=== PATIENT | male | born 1990 | race Two or more races ===

== ENCOUNTER 2020-12-12 09:06 | Emergency (ER) | payer OTHER ==
--- NOTE | 2020-12-12 09:34 | EDM.PDOC ---
ED HPI GENERAL MEDICAL PROBLEM - General Chief Complaint: Laceration Stated Complaint: FELL CUT OPEN HEAD Time Seen by Provider: 12/12/20 09:25 Source of Information: Reports: Patient, RN, RN Notes Reviewed History Limitations: Reports: No Limitations - History of Present Illness INITIAL COMMENTS - FREE TEXT/NARRATIVE: Patient presents to the ED via personal vehicle with complaints of a head laceration. The patient reports he struck his head off of his bathroom counter while getting ready about one hour prior to presenting to this facility. He denies positive LOC during the event. He denies changes in sensorium, nausea, vomiting, or changes in vision. He has attempted to apply pressure to the area to stop the bleeding, but notes it will not stop oozing. He has not taken any medication for this problem. - Related Data Allergies Allergy/AdvReac Type Severity Reaction Status Date / Time No Known Allergies Allergy Verified 12/12/20 09:17 Home Meds: Home Meds . [No Known Home Meds] 12/12/20 [History] Past Medical History - Past Health History Medical/Surgical History: Denies Medical/Surgical History Social & Family History - Tobacco Use Tobacco Use Status *Q: Current Some Day Tobacco User Years of Tobacco use: 1 Packs/Tins Daily: 0.1 - Recreational Drug Use Recreational Drug Use: No ED ROS GENERAL - Review of Systems Review Of Systems: Comprehensive ROS is negative, except as noted in HPI. ED EXAM, SKIN/RASH Exam: See Below Exam Limited By: No Limitations General Appearance: Alert, No Apparent Distress Eye Exam: Bilateral Eye: EOMI, Normal Inspection, PERRL (3mm) Head: Normocephalic. No: Facial Swelling, Facial Tenderness, Sinus Tenderness Neck: Normal Inspection, Supple, Non-Tender, Full Range of Motion Neurological: Alert, Oriented, CN II-XII Intact, Normal Cognition, Normal Gait, No Motor/Sensory Deficits Psychiatric: Normal Affect, Normal Mood Skin: Warm, Dry, Normal Color, No Rash, Wound/Incision (2 lacerations to anterior midline scalp; First is 2cm is length and second is 2.5cm in length). No: Ecchymosis, Erythema, Excoriations, Increased Warmth, Mottled, Pallor, Petechiae Location, Skin: Head Characteristics: Other Associated features: Tenderness. No: Warmth, Swelling, Induration, Inflammation, Crusting, Weeping ED SKIN PROCEDURES - Laceration/Wound Repair Middle Anterior Midline Head Appearance: Superficial, Linear, Clean Distal NVT: Neuro & Vascular Intact Skin Prep: Chlorhexidine (Hibiciens) Exploration/Debridement/Repair: Wound Explored, In a Bloodless Field, No Foreign Material Found, Wound Margins Revised Closed with: Dermabond Lac/Wound length In cm: 2 Drain Placement: No Sterile Dressing Applied: None Tetanus Status Addressed: Yes Complications: No Middle Mid-Anterior Midline Head Appearance: Superficial, Linear, Clean Distal NVT: Neuro & Vascular Intact Skin Prep: Chlorhexidine (Hibiciens) Exploration/Debridement/Repair: Wound Explored, In a Bloodless Field, Explored to Base, No Foreign Material Found, Wound Margins Revised Closed with: Dermabond Lac/Wound length In cm: 2.5 Drain Placement: No Sterile Dressing Applied: None Tetanus Status Addressed: Yes Complications: No Course - Vital Signs Last Recorded V/S: Last Vital Signs Temp 97.4 F 12/12/20 09:17 Pulse 54 L 12/12/20 09:17 Resp 16 12/12/20 09:17 BP 127/85 12/12/20 09:17 Pulse Ox 98 12/12/20 09:17 Departure - Departure Time of Disposition: 09:39 Disposition: Home, Self-Care 01 Condition: Good Clinical Impression: Laceration of head Qualifiers: Encounter type: initial encounter Location of open wound of head: scalp Foreign body presence: without foreign body Qualified Code(s): S01.01XA - Laceration without foreign body of scalp, initial encounter - Discharge Information *PRESCRIPTION DRUG MONITORING PROGRAM REVIEWED*: Not Applicable *COPY OF PRESCRIPTION DRUG MONITORING REPORT IN PATIENT TREVA: Not Applicable Instructions: Wound Infection, [id number], Laceration Care, Adult, [id number] Forms: ED Department Discharge Additional Instructions: 1.) Keep wounds clean and dry; you may shower as normal, but be careful to not scrub too vigorously over the lacerations. 2.) The Dermabond will slowly flake off over the next few days; do not pull it off as this may reopen your wounds. 3.) You may take acetaminophen (Tylenol) 650mg every six hours as needed for pain. You may take ibuprofen (Advil/Motrin) 400mg every six hours as needed for pain. You may stagger these medications so you are taking a dose of medicine every three hours. Sepsis Event Note (ED) - Evaluation Sepsis Screening Result: No Definite Risk - Focused Exam Vital Signs: Vital Signs Temp Pulse Resp BP Pulse Ox 12/12/20 09:17 97.4 F 54 L 16 127/85 98
== END 2020-12-12 09:51 | disposition home or self-care (01) ==
LOC: DL.ED 09:06
DX: S01.01XA Laceration without foreign body of scalp, initial encounter (principal); Z72.0 Tobacco use; W22.8XXA Striking against or struck by other objects, initial encounter; Y92.002 Bathroom of unspecified non-institutional (private) residence as the place of occurrence of the external cause
CPT/HCPCS: 12002; 99282-25